=== PATIENT | male | born 1960 | race Caucasian/White ===

== ENCOUNTER → 2023-10-18 13:44 | Outpatient (REF) | payer MEDICARE, BC, SELFPAY | LOC: RAD 13:44 | PROVIDERS: ATTENDING PHYSICIAN Anesthesiology; FAMILY PHYSICIAN Family Medicine | DX: M54.16 Radiculopathy, lumbar region (principal) | CPT/HCPCS: 72131 ==

== ENCOUNTER 2024-08-10 21:45 | Emergency (ER) | payer MEDICARE, BC, SELFPAY ==
[2024-08-10 21:51] VITALS: BP 135/78
[2024-08-10 22:20] LABS: COVID-19 Antigen Positive (Negative)
[2024-08-11] MEDS: TYLENOL 650 MG PO (01:03)
[2024-08-11 01:50] VITALS: BP 108/67
--- NOTE | 2024-08-11 02:58 | ED.GENMED ---
History of Present Illness
General
Chief Complaint: Fever
Source: patient and spouse
Exam Limitations: none
Time Seen by Provider: 08/11/24 02:32
Nursing documentation reviewed up to this point in time: agreed with
History of Present Illness
History of Present Illness:
Pleasant 63-year-old male presents to the emergency department with fever since yesterday. His Tmax was 101.1. is positive for COVID and thinks she passed it over to him. She is concerned because patient has a cardiac and renal transplant.
They called the transplant team who advised him to come to the emergency department just for evaluation. Patient denies nausea vomiting diarrhea or constipation. States that he just feels weak took NyQuil which seemed to help symptoms.
Past History
Past History
ED Past Medical History: Arrthythmia, CHF, Renal failure, Hypothyroidism and Other (Cellulitis, Pancreatitis,)
ED Past Surgical History: Appendectomy, Cardiac (heart transplant) and Urological (Kidney transplant)
Social History
Tobacco: Non-smoker
Alcohol: Occasional
Drug: None
Personal:
Living: with family
Employment: Disabled
Family History
Family History: Other
Review of Systems
Review of Systems
Allergies reviewed?: Yes
All Other Systems: ROS reviewed and negative except as documented in HPI and ROS
Constitutional: Reports fever and fatigue
EENT: Reports no symptoms
Respiratory: Reports no symptoms
Cardiac: Reports no symptoms
ABD/GI: Reports no symptoms
: Reports no symptoms
Musculoskeletal: Reports no symptoms
Skin: Reports no symptoms
Neurological: Reports weakness
Endocrine: Reports no symptoms
Hematologic/Lymphatic: Reports no symptoms
Psychiatric: Reports anxiety
Phy Exam
General Physical Exam
General Presentation: well appearing and mild distress
General age: appears stated age
General Skin: warm and dry
General Habitus: normal
General Mental: alert
General Hydration: appears well hydrated
Cardiovascular Exam
Cardiovascular Exam: regular rate/rhythm and no edema
Neurological Exam
Neurological Exam: alert and oriented x3
Musculoskeletal Exam
Musculoskeletal Exam: full ROM
Course
Orders/Labs/Results
Orders:
Orders
08/10/24 21:58
COVID-19 Antigen Urgent
Source: Nasal Swab
Influenza A+B Rapid Molecular Urgent
SAVITA Source: Nasal Swab
Specimen Description:
08/11/24 00:59
Acetaminophen [Tylenol] 650 mg PO NOW STA
08/11/24 02:53
Complete Blood Count/With Diff Urgent
Comprehensive Metabolic Panel Urgent
08/11/24 04:24
CR Chest - 2 Views Urgent
Comment:
Reason For Exam: covid +
08/11/24 04:25
NSS 500mL Bolus over 30 minutes 0.9% Sodium Chloride 500 ml [Nss] 500 ml IV BOLUS
Abnormal Lab Results
08/10/24 08/11/24
21:58 02:53
WBC 4.5 L 10^3/uL
(4.8-10.8)
RBC 3.99 L 10^6/uL
(4.70-6.10)
Hgb 12.2 L g/dL
(13.0-18.0)
Hct 36.8 L %
(39.0-52.0)
RDW 14.9 H %
(11.5-14.5)
Plt Count 119 L 10^3/uL
(130-400)
Absolute Lymphs (auto) 0.6 L 10^3/uL
(1.2-3.4)
Absolute Monos (auto) 0.7 H 10^3/uL
(0.1-0.6)
Lymphocytes % 13.6 L %
(20.5-51.1)
Monocytes % 14.7 H %
(1.7-9.3)
BUN 52 H mg/dl
(9-20)
Creatinine 1.5 H mg/dL
(0.7-1.3)
SARS-CoV-2 Antigen Positive A
(Negative)
08/11/24 02:53
08/11/24 02:53
Vital Signs
Initial and Last Documented VS:
Initial Vital Signs
Temp Pulse Resp BP Pulse Ox
99.9 F 117 18 135/78 96
08/10/24 21:51 08/10/24 21:51 08/10/24 21:51 08/10/24 21:51 08/10/24 21:51
Last Documented Vital Signs
Temp Pulse Resp BP Pulse Ox
100.5 F H 103 26 108/67 96
08/11/24 00:59 08/11/24 01:51 08/11/24 01:51 08/11/24 01:50 08/10/24 21:51
*Critical Care Note
Total Time (30-74mins, 75-104mins- exclusive of procedures): Not Applicable
Update Note
Update Note:
Patient confirms COVID.
Aside from fever, denies any other symptoms.
Had a heart and kidney transplant in 2012. [facility]
I spoke with Dr. Neal from the transplant team who after brief discussion stated that they required nothing else other than the testing that we did. She does request that the patient follow-up with the transplant clinic tomorrow morning.
Discussed this plan with patient and he is in agreement. He will call first thing in the morning
ED Attending Note
-
Portions of this chart may have been created with voice recognition software.� Occasional wrong word or��sound alike� substitutions may have occurred due to the inherent limitations of voice recognition software.
Discharge Plan
Departure
Covid-19: Confirmed COVID-19
Discharge Problem:
COVID
Instructions: Coronavirus Home Quarantine
Prescriptions:
No Action
levothyroxine [Synthroid] 150 MCG tablet
175 mcg PO DAILY
testosterone [AndroGel] 5 GM gel in packet
5 gm TD DAILY
magnesium amino acid chelate 100 MG tablet
400 mg PO DAILY
cyanocobalamin (vitamin B-12) 100 MCG tablet
1,000 mcg PO DAILY
prednisone 5 MG tablet
5 mg PO DAILY
aspirin 81 MG tablet,delayed release (DR/EC)
81 mg PO DAILY
multivitamin [Daily Multiple] 1 EACH tablet
1 ea PO DAILY
docusate sodium 100 MG capsule
100 mg PO DAILY PRN (Reason: constipation)
methadone 10 MG tablet
20 mg PO TID
Nucynta 50 MG tablet
50 mg PO TID
modafinil 200 MG tablet
200 mg PO DAILY PRN (Reason: alertness)
allopurinol 100 MG tablet
300 mg PO DAILY
Tamsulosin Capsule
0.4 mg PO HS
tacrolimus 1 MG capsule
1.5 mg PO BID
duloxetine 60 MG capsule,delayed release(DR/EC)
2 cap PO Q12H
clonazepam 0.5 MG tablet
0.5 mg PO HS
Pregabalin
75 mg PO TID
furosemide 40 MG tablet
1 tab PO DAILY PRN (Reason: fluid overload)
rosuvastatin [Crestor] 10 mg Tablet
10 mg PO DAILY
doxycycline hyclate 100 MG capsule
100 mg PO Q12 PRN (Reason: Dental work)
Referrals:
Lane Hutchinson Jr., DO [Family Provider] -
Interventions
Interventions:
*Risk Screen - Suicide Last Done: 08/10/24 21:51
*General Assessment Last Done: 08/10/24 21:51
*Neglect/Abuse Screening Last Done: 08/10/24 21:51
*ED COVID-19 Vaccine History Last Done: 08/10/24 21:51
ED- Neurological Assessment Last Done: 08/11/24 01:58
ED-Skin Assessment Last Done: 08/11/24 01:58
Discharge Date and Time
Print Language: ANGOLAN
[2024-08-11 03:11] LABS: % Basophils 0.2 % (0-2); % Eosinophils 1.1 % (0-6); % Immature Granulocytes 0.2 % (0-0.5); % Lymphocytes 13.6 % (20.5-51.1); % Monocytes 14.7 % (1.7-9.3); % Neutrophils 70.2 % (42.2-75.2); Absolute Eosinophils 0.1 10^3/uL (0-0.7); Absolute Lymphocytes 0.6 10^3/uL (1.2-3.4); Absolute Monocytes 0.7 10^3/uL (0.1-0.6); Absolute Neutrophils 3.1 10^3/uL (1.4-6.5); Hematocrit 36.8 % (39.0-52.0); Hemoglobin 12.2 g/dL (13.0-18.0); Mean Corp Hgb Conc. 33.2 g/dL (33.0-37.0); Mean Corpuscular Hgb 30.6 pg (27.0-31.0); Mean Corpuscular Volume 92.2 fL (80.0-94.0); Mean Platelet Volume 9.6 fL (7.4-10.4); Nucleated Red Blood Cells % 0 % (-); Platelet Count 119 10^3/uL (130-400); Red Blood Cell Count 3.99 10^6/uL (4.70-6.10); Red Cell Dist. Width 14.9 % (11.5-14.5); White Blood Cell Count 4.5 10^3/uL (4.8-10.8)
[2024-08-11 03:33] LABS: ALT (SGPT) 46 U/L (0-50); AST (SGOT) 42 U/L (17-59); Alkaline Phosphatase 97 U/L (38-126); Blood Urea Nitrogen 52 mg/dl (9-20); Calcium 9.3 mg/dl (8.4-10.2); Carbon Dioxide 25 mmol/L (22-30); Chloride 105 mmol/L (98-107); Glucose 93 mg/dl (70-99); Sodium 139 mmol/L (135-145); Total Bilirubin 0.5 mg/dl (0.2-1.3); Total Protein 6.4 g/dl (6.3-8.2); eGFR 51.99
== END 2024-08-11 06:32 | disposition home or self-care (01) ==
LOC: EMR 21:45
PROVIDERS: Emergency Medicine; EMERGENCY PHYSICIAN Student in an Organized Health Care Education/Training Program; FAMILY PHYSICIAN Family Medicine
DX: U07.1 COVID-19 (principal); I50.9 Heart failure, unspecified; E03.9 Hypothyroidism, unspecified; Z90.49 Acquired absence of other specified parts of digestive tract; Z94.0 Kidney transplant status
CPT/HCPCS: 99282; 71046; 80053; 85025; 87502; 87811

== ENCOUNTER → 2024-09-14 15:19 | Outpatient (REF) | payer MEDICARE, BC, SELFPAY | LOC: RAD 15:19 | PROVIDERS: ATTENDING PHYSICIAN Registered Nurse | DX: M54.16 Radiculopathy, lumbar region (principal); R05.1 Acute cough | CPT/HCPCS: 71046; 72131 ==

== ENCOUNTER → 2024-11-29 09:09 | Outpatient (REF) | payer MEDICARE, BC, SELFPAY ==
[2024-11-29 09:42] LABS: PT 13.7 Sec (11.4-14.6)
[2024-11-29 09:49] VITALS: BP 151/92; BP_SYST 100; BMI 27.1
[2024-11-29 11:30] VITALS: BP 118/75; BP_SYST 76
[2024-11-29 12:30] VITALS: BP 118/69
== END ==
LOC: RAD 09:09
PROVIDERS: ATTENDING PHYSICIAN Family Medicine; REFERRING PHYSICIAN Physician Assistant
DX: M54.50 Low back pain, unspecified (principal); G89.29 Other chronic pain; A41.9 Sepsis, unspecified organism
CPT/HCPCS: 36415; 62304; 72131; 85610

== ENCOUNTER 2025-03-20 08:41 | Outpatient (RCR) | payer MEDICARE, BC, SELFPAY ==
[2025-03-12] MEDS: INJECTAFER 265 MG IV (08:57)
[2025-03-12 09:03] VITALS: BP 151/68
[2025-03-12 10:00] VITALS: BP 123/62
[2025-03-20 09:01] VITALS: BP 121/74
[2025-03-20] MEDS: INJECTAFER 265 MG IV (09:04)
[2025-03-20 10:44] VITALS: BP 125/77
== END 2025-03-21 08:51 | disposition home or self-care (01) ==
LOC: OID 08:41
PROVIDERS: ATTENDING PHYSICIAN Specialist; FAMILY PHYSICIAN Family Medicine
DX: D50.9 Iron deficiency anemia, unspecified (principal); Z94.0 Kidney transplant status; Z94.1 Heart transplant status; N18.32 Chronic kidney disease, stage 3b; D86.9 Sarcoidosis, unspecified; D47.2 Monoclonal gammopathy; E61.1 Iron deficiency
CPT/HCPCS: 96365; J1439

== ENCOUNTER → 2025-05-28 14:19 | Outpatient (REF) | payer MEDICARE, BC, SELFPAY ==
[2025-05-28 15:57] LABS: Blood Urea Nitrogen 36 mg/dl (9-20); Calcium 9.4 mg/dl (8.4-10.2); Carbon Dioxide 32 mmol/L (22-30); Chloride 102 mmol/L (98-107); Glucose 103 mg/dl (70-99); Potassium 4.7 mmol/L (3.5-5.1); Sodium 139 mmol/L (135-145); eGFR 56.13
== END ==
LOC: REG 14:19
PROVIDERS: ATTENDING PHYSICIAN Specialist; FAMILY PHYSICIAN Family Medicine
DX: Z94.0 Kidney transplant status (principal); N18.32 Chronic kidney disease, stage 3b; Z94.1 Heart transplant status
CPT/HCPCS: 36415; 80048